=== PATIENT | female | born 1960 | race American Indian/Alaskan Native ===

== ENCOUNTER 2017-04-21 12:33 | Emergency (ER) | payer OTHER ==
[2017-04-21 12:43] VITALS: BP 130/69; PULSE 90; RESP 16; TEMP 98; O2SAT 100
--- NOTE | 2017-04-21 13:46 | ED PDOC ---
Upper Extremity Pain/Injury Time Seen by Provider: 04/21/17 12:33 Chief Complaint (Nursing): Upper Extremity Problem/Injury Chief Complaint (Provider): Right shoulder pain History Per: Patient History/Exam Limitations: physical impairment (Exam limited due to patient's limited range of motion of right arm) Onset/Duration Of Symptoms: Days (x4) Current Symptoms Are (Timing): Still Present Additional Complaint(s): Mami Garcia is a 56 year old female, with no previous medical history, who presents to the emergency department with a complaint of right shoulder pain associated with right neck pain, and right hand swelling with paresthesia ongoing for 4 days. States she was seen in an urgent care yesterday where she was given prescriptions for methocarbamol and nabumetone. Denies any fall/ trauma. PMD: None provided Past Medical History Reviewed: Historical Data, Nursing Documentation, Vital Signs Vital Signs: Last Vital Signs Temp 98.0 F 04/21/17 12:41 Pulse 90 04/21/17 12:41 Resp 16 04/21/17 12:41 BP 130/69 04/21/17 12:41 Pulse Ox 100 04/21/17 12:41 - Medical History PMH: No Chronic Diseases - Surgical History Surgical History: No Surg Hx - Family History Family History: States: Unknown Family Hx - Social History Current smoker - smoking cessation education provided: No Alcohol: None Drugs: Denies - Allergies Allergies/Adverse Reactions: Allergies Allergy/AdvReac Type Severity Reaction Status Date / Time No Known Allergies Allergy Verified 04/21/17 12:43 Review of Systems ROS Statement: Except As Marked, All Systems Reviewed And Found Negative ( paresthesia) Constitutional: Negative for: Other (Fall) Musculoskeletal: Positive for: Neck Pain (right), Shoulder Pain (right), Hand Pain (Swelling of the right hand with a tingling sensation. ) Physical Exam - Reviewed Nursing Documentation Reviewed: Yes Vital Signs Reviewed: Yes - Physical Exam Appears: Positive for: Well, Non-toxic, No Acute Distress Head Exam: Positive for: ATRAUMATIC, NORMAL INSPECTION, NORMOCEPHALIC Skin: Positive for: Normal Color, Warm, Dry Neck: Positive for: Pain On Movement Of Neck (Tenderness and muscle spasm of right lateral neck ) Extremity: Positive for: Tenderness (Tenderness to lateral and anterior region of shoulder. Difficulty with abducting of the right shoulder. Difficulty with touching of opposite shoulder (left). ). Negative for: Normal ROM (Exam limited due to ROM of right shoulder.), Other (No obvious swelling noted to right hand. No bony tenderness noted of the right hand and shoulder.) Neurologic/Psych: Positive for: Alert, Oriented - ECG O2 Sat by Pulse Oximetry: 100 (RA) Pulse Ox Interpretation: Normal Medical Decision Making Medical Decision Making: Initial Impression: Right shoulder pain Initial Plan: Toradol 60mg IM Xray shoulder (R) Reevaluation 14:11 Xray shows no acute findings Time: 14:45 Upon provider reevaluation patient is feeling better, is medically stable, and requires no further treatment in the ED at this time. Patient will be discharged home. Counseling was provided and all questions were answered regarding diagnosis and need for follow up with Orthopedist. There is agreement to discharge plan. Return if symptoms persist or worsen. Clinical Impression: Calcific tendonitis of right shoulder and muscle spasms Scribe Attestation: Documented by Keiko Cheung acting as a scribe for DOROTHY Gilliland. Scribe Attestation: All medical record entries made by the Scribe were at my direction and personally dictated by me. I have reviewed the chart and agree that the record accurately reflects my personal performance of the history, physical exam, medical decision making, and the department course for this patient. I have also personally directed, reviewed, and agree with the discharge instructions and disposition. Disposition - Clinical Impression Clinical Impression: Calcific tendonitis of right shoulder, Muscle spasm - Patient ED Disposition Is Patient to be Admitted: No Counseled Patient/Family Regarding: Studies Performed, Diagnosis, Rx Given - Disposition Disposition: Routine/Home Disposition Time: 14:45 Condition: FAIR Additional Instructions: f/u with your pmd in [place] for ortho referral Instructions: Calcific Tendinitis (ED) Forms: [facility] ED School/Work Excuse
--- NOTE | 2017-04-21 16:34 | RAD ---
PROCEDURE: Right shoulder dated 04/21/2017 Three standard views right shoulder performed HISTORY: Right shoulder injury. COMPARISON: No prior. FINDINGS: BONES: No evidence of acute displaced fracture nor dislocation. JOINTS: Normal. Glenohumeral and acromioclavicular joints preserved. No osteoarthritis. SOFT TISSUES: lobulated/ elliptical shaped soft tissue calcifications seen adjacent to to the superolateral margin of the right humeral head and greater tuberosity. Findings may represent calcific tendinitis or bursitis. OTHER FINDINGS: None. IMPRESSION: No acute fractures. Lobulated / elliptical shaped soft tissue calcifications seen adjacent to to the superolateral margin of the right humeral head and greater tuberosity. Findings may represent calcific tendinitis or bursitis. Note the report was placed in [place] review folder for followup
== END 2017-04-21 14:25 | disposition home or self-care (01) ==
LOC: H.ER 12:33
DX: M75.31 Calcific tendinitis of right shoulder (principal); M62.830 Muscle spasm of back; M54.2 Cervicalgia; R20.2 Paresthesia of skin; R22.31 Localized swelling, mass and lump, right upper limb

== ENCOUNTER 2017-09-18 20:55 | Emergency (ER) | payer OTHER ==
[2017-09-18 21:04] VITALS: BP 131/75; PULSE 100; RESP 16; TEMP 96.6; O2SAT 100
--- NOTE | 2017-09-18 21:24 | ED PDOC ---
HPI: Eye Injury/Pain Time Seen by Provider: 09/18/17 21:10 Chief Complaint (Nursing): Eye Problem Chief Complaint (Provider): Eye Problem History Per: Patient History/Exam Limitations: no limitations Onset/Duration Of Symptoms: Days (x1) Current Symptoms Are (Timing): Still Present Additional Complaint(s): Mami Garcia is a 56 year old female with no past medical history who presents to the ED due to swelling noted under her eyes. Concerned because she states her host had similar swelling and is concerned she contracted a contagious disease. Attempted hydrocortisone cream application and felt improvement but presented to ED for evaluation. Confirms mild nasal congestion. Denies fevers, chills, or new foods. PMD: [facility] Provider Past Medical History Reviewed: Historical Data, Nursing Documentation, Vital Signs Vital Signs: Last Vital Signs Temp 96.6 F L 09/18/17 21:01 Pulse 100 H 09/18/17 21:01 Resp 16 09/18/17 21:01 BP 131/75 09/18/17 21:01 Pulse Ox 100 09/18/17 21:01 - Family History Family History: States: Unknown Family Hx - Allergies Allergies/Adverse Reactions: Allergies Allergy/AdvReac Type Severity Reaction Status Date / Time No Known Allergies Allergy Verified 09/18/17 21:01 Review of Systems ROS Statement: Except As Marked, All Systems Reviewed And Found Negative Constitutional: Negative for: Fever, Chills Eyes: Positive for: Other (Swelling under eyes) ENT: Positive for: Nose Congestion (mild) Physical Exam - Reviewed Nursing Documentation Reviewed: Yes Vital Signs Reviewed: Yes - Physical Exam Appears: Positive for: Well, Non-toxic, No Acute Distress Head Exam: Positive for: ATRAUMATIC, NORMAL INSPECTION, NORMOCEPHALIC Skin: Positive for: Normal Color. Negative for: Rash Eye Exam: Positive for: Normal appearance (No obvious swelling or erythema noted. ) Neurologic/Psych: Positive for: Alert, Oriented - ECG O2 Sat by Pulse Oximetry: 100 (RA) Pulse Ox Interpretation: Normal Medical Decision Making Medical Decision Making: Time: 21:15 Initial Impression: Skin irritation Plan: --Patient reassured. Advised cold compresses for swelling and followup with PMD in 2 days. There is agreement to discharge plan. Return if symptoms persist or worsen. Scribe Attestation: Documented by Andrade Mello, acting as a scribe for Abner Marie PA-C Provider Scribe Attestation: All medical record entries made by the Scribe were at my direction and personally dictated by me. I have reviewed the chart and agree that the record accurately reflects my personal performance of the history, physical exam, medical decision making, and the department course for this patient. I have also personally directed, reviewed, and agree with the discharge instructions and disposition. Disposition - Clinical Impression Clinical Impression: Facial swelling - Patient ED Disposition Is Patient to be Admitted: No - Disposition Disposition: Routine/Home Disposition Time: 21:20 Condition: FAIR Instructions: Dermatitis (ED) Forms: [facility] ([place])
== END 2017-09-18 22:25 | disposition home or self-care (01) ==
LOC: H.ER 20:55
DX: R22.0 Localized swelling, mass and lump, head (principal)